=== PATIENT | male | born 1945 | race Caucasian/White ===

== ENCOUNTER 2022-03-28 22:03 | Inpatient (IN) | payer OTHER ==
[2022-03-28 22:47] LABS: #Monocytes 0.7 10x3/uL (0.0-1.1); #Neutrophils 8.7 10x3/uL (1.5-8.4); %Basophils 0.3 % (0.0-2.0); %Eosinophils 0.1 % (0.0-6.0); %Lymphocytes 5.6 % (18.0-47.0); %Monocytes 7.1 % (0.0-10.0); %Neutrophils 86.7 % (40.0-75.0); Hemoglobin 14.5 g/dL (13.5-17.5); Mean Corpuscular HGB CONC 36.5 g/dL (32.0-36.0); Mean Corpuscular Hemoglobin 30.9 pg (27.0-33.0); Mean Corpuscular Volume 84.5 fl (81.2-95.1); Mean Platelet Volume 10.3 fl (7.4-10.4); Platelet Count 165 10x3/uL (150-450); White Blood Cell (WBC) Count 10.1 10x3/uL (3.5-10.5)
[2022-03-28 23:01] LABS: ALT (SGPT) 245 U/L (8-55); AST (SGOT) 299 U/L (5-34); Albumin 4.1 g/dL (3.4-4.8); Alkaline Phosphatase 188 U/L (40-110); Anion Gap 14 mmol/L (10-20); BUN (Urea Nitrogen) 13 mg/dL (8.4-25.7); Bilirubin, Total 3.9 mg/dL (0.2-1.2); CK (CPK) 64 U/L (30-200); Calc. Creatinine Clearance 0 mL/min (70-130); Calcium 8.3 mg/dL (7.8-10.44); Carbon Dioxide 20 mmol/L (23-31); Chloride 110 mmol/L (98-107); Estimated GFR 91; Globulin 2.1 g/dL (2.4-3.5); Glucose 118 mg/dL (83-110); Lipase 12 U/L (8-78); Potassium 3.5 mmol/L (3.5-5.1); Protein, Total 6.2 g/dL (5.8-8.1); Sodium 140 mmol/L (136-145)
[2022-03-28 23:22] LABS: CKMB 1.2 ng/mL (0-6.6)
[2022-03-28] MEDS ORDERED: Aspirin Chewable 81 MG TAB ONE (23:41)
[2022-03-28] MEDS ORDERED: Ondansetron PF 4 MG/2 ML Vial ONE (23:43)
[2022-03-29 00:25] LABS: SARS-CoV-2 NAA Rapid Test Not Detected (NotDetected)
[2022-03-29] MEDS ORDERED: Sucralfate 1 GM/10 ML UDCUP ONE (00:35)
[2022-03-29] MEDS ORDERED: Pantoprazole 40 MG VIAL ONE (00:52)
[2022-03-29 03:25] VITALS: BMI 25.4
[2022-03-29 03:40] LABS: HBSAg Index 0.17 S/CO (0-0.99); Hep B Surf Ag Non-Reactive S/CO (NonReactive)
[2022-03-29] MEDS ORDERED: Piperacillin/Tazobactam 3.375 GM in Sodium Chloride 0.9% 100 ML IVPB SCH (04:00)
[2022-03-29] MEDS: Potassium Chloride 20 MEQ in Lactated Ringer's 1,000 ML IV SCH ×3 (04:03→19:32)
[2022-03-29 04:40] LABS: Troponin I 0.112 ng/mL (< 0.028)
[2022-03-29 06:31] LABS: PTT 28.8 sec (22.0-33.0); Prothrombin Time 11.3 sec (9.5-12.1)
[2022-03-29 06:35] LABS: ALT (SGPT) 296 U/L (8-55); AST (SGOT) 256 U/L (5-34); Albumin 4.1 g/dL (3.4-4.8); Alkaline Phosphatase 210 U/L (40-110); Anion Gap 14 mmol/L (10-20); BUN (Urea Nitrogen) 14 mg/dL (8.4-25.7); Calc. Creatinine Clearance 81 mL/min (70-130); Calcium 8.6 mg/dL (7.8-10.44); Carbon Dioxide 21 mmol/L (23-31); Chloride 110 mmol/L (98-107); Estimated GFR 89; Globulin 2.1 g/dL (2.4-3.5); Glucose 110 mg/dL (83-110); Protein, Total 6.2 g/dL (5.8-8.1); Sodium 141 mmol/L (136-145)
[2022-03-29 06:41] LABS: Troponin I 0.107 ng/mL (< 0.028)
[2022-03-29] MEDS ORDERED: Levothyroxine Sodium 100 MCG TAB PO SCH ×2 (07:45→12:00)
[2022-03-29] MEDS ORDERED: Magnevist 469MG/ML 20 ML VIAL ONE (10:33)
[2022-03-29] MEDS: Aspirin 81 mg Enteric Coated Tablet PO SCH (13:55)
[2022-03-29] MEDS: Terazosin HCl 5 MG CAP PO SCH (13:55)
[2022-03-29] MEDS: Pantoprazole 40 MG VIAL IVP SCH ×2 (13:55→20:27)
[2022-03-29] MEDS: Piperacillin/Tazobactam 3.375 GM in Sodium Chloride 0.9% 100 ML IVPB SCH ×3 (13:56→23:40)
[2022-03-29] MEDS: Aspirin 300 MG Suppository PR SCH (13:58)
[2022-03-29 18:37] LABS: Iron 110 ug/dL (65-175); Iron Binding Capacity, Total 201 mcg/dL (261-462)
[2022-03-29] MEDS: Ondansetron PF 4 MG/2 ML Vial IVP PRN (20:27)
[2022-03-29 23:43] LABS: Hep A IgM AB Non-Reactive (NonReactive); Hep A IgM S/CO 0.13 S/CO (0-0.79)
[2022-03-29 23:54] LABS: HBSAB Concentration 33.56 mIU/mL; Hep B Surf AB Reactive (NonReactive)
[2022-03-30] MEDS ORDERED: Acetaminophen 325 MG TAB PO PRN (00:32)
[2022-03-30] MEDS ORDERED: VANCOMYCIN 1.75 GM/350 ML BAG IVPB SCH (01:15)
[2022-03-30] MEDS ORDERED: VANCOMYCIN 1.75 GM/350 ML BAG 1.75 GM in Premix Bag 1 BAG IVPB SCH (02:00)
[2022-03-30 03:57] LABS: #Eosinphils 0.3 10x3/uL (0.0-0.5); #Monocytes 0.7 10x3/uL (0.0-1.1); #Neutrophils 4.7 10x3/uL (1.5-8.4); %Basophils 0.6 % (0.0-2.0); %Eosinophils 3.3 % (0.0-6.0); %Lymphocytes 11.9 % (18.0-47.0); %Monocytes 10.2 % (0.0-10.0); %Neutrophils 73.1 % (40.0-75.0); Hemoglobin 13.4 g/dL (13.5-17.5); Mean Corpuscular HGB CONC 35.7 g/dL (32.0-36.0); Mean Corpuscular Hemoglobin 31.3 pg (27.0-33.0); Mean Corpuscular Volume 87.5 fl (81.2-95.1); Mean Platelet Volume 10.5 fl (7.4-10.4); Platelet Count 126 10x3/uL (150-450); RBC Distribution Width 12.4 % (11.5-14.5); Red Blood Cell (RBC) Count 4.32 10x6/uL (4.32-5.72); White Blood Cell (WBC) Count 6.4 10x3/uL (3.5-10.5)
[2022-03-30 04:01] LABS: INR-International Normal Ratio 1.1; Prothrombin Time 12.3 sec (9.5-12.1)
[2022-03-30 04:11] LABS: ALT (SGPT) 172 U/L (8-55); AST (SGOT) 97 U/L (5-34); Albumin 3.5 g/dL (3.4-4.8); Alkaline Phosphatase 183 U/L (40-110); Anion Gap 12 mmol/L (10-20); BUN (Urea Nitrogen) 15 mg/dL (8.4-25.7); Bilirubin, Total 8.7 mg/dL (0.2-1.2); Calc. Creatinine Clearance 83 mL/min (70-130); Calcium 8.3 mg/dL (7.8-10.44); Carbon Dioxide 21 mmol/L (23-31); Chloride 109 mmol/L (98-107); Estimated GFR 90; Globulin 2.4 g/dL (2.4-3.5); Glucose 89 mg/dL (83-110); Potassium 3.6 mmol/L (3.5-5.1); Protein, Total 5.9 g/dL (5.8-8.1); Sodium 138 mmol/L (136-145)
[2022-03-30] MEDS: Potassium Chloride 20 MEQ in Lactated Ringer's 1,000 ML IV SCH ×2 (04:59→12:00)
[2022-03-30] MEDS ORDERED: Levothyroxine Sodium 100 MCG TAB PO SCH (06:00)
[2022-03-30] MEDS ORDERED: PROPOFOL 20 ML ONE (09:14)
[2022-03-30] MEDS ORDERED: Lidocaine 1% PF 5 ML VIAL ONE (09:25)
[2022-03-30] MEDS: Piperacillin/Tazobactam 3.375 GM in Sodium Chloride 0.9% 100 ML IVPB SCH ×2 (11:52→16:00)
[2022-03-30] MEDS: Terazosin HCl 5 MG CAP PO SCH (11:54)
[2022-03-30] MEDS: Aspirin 81 mg Enteric Coated Tablet PO SCH (11:54)
[2022-03-30] MEDS: Pantoprazole 40 MG VIAL IVP SCH (11:54)
[2022-03-30] MEDS: Aspirin 300 MG Suppository PR SCH (12:12)
[2022-03-30] MEDS ORDERED: VANCOMYCIN 1.25 GM/250 ML BAG IVPB SCH (13:00)
[2022-03-30] MEDS: Ondansetron PF 4 MG/2 ML Vial IVP PRN (13:33)
[2022-03-30 17:39] VITALS: BP 136/67; TEMP 98.9
[2022-04-01 11:14] LABS: Smooth Muscle Total ABS 8 Units (0-19)
[2022-04-01 21:12] LABS: Hep C PCR-Quant HCV Not Detected IU/mL (.)
[2022-04-02 04:12] LABS: Alpha-1-Antitrypsin 174 mg/dL (101-187)
[2022-04-02 12:42] LABS: EliA Vaculitis New Method **** NEW METHOD ****; Mitochondrial Ab 0.7 U/mL (<4 Negative)
== END 2022-03-30 17:00 | disposition short-term general hospital (02) | DRG 445 ==
LOC: CSHERS 22:03 → CSHTELE 03-29 02:59 → EEVIPCON 03-29 02:59
PROVIDERS: ADMIT Family Medicine; ATTEND Internal Medicine
PROC: 0DJ08ZZ Inspection of Upper Intestinal Tract, Via Natural or Artificial Opening Endoscopic (ICD-10-PCS; principal; 2022-03-30)
DX: K83.1 Obstruction of bile duct (principal); K92.2 Gastrointestinal hemorrhage, unspecified; K44.9 Diaphragmatic hernia without obstruction or gangrene; K21.9 Gastro-esophageal reflux disease without esophagitis; I10 Essential (primary) hypertension; E03.9 Hypothyroidism, unspecified; Z20.822 Contact with and (suspected) exposure to COVID-19; N40.1 Benign prostatic hyperplasia with lower urinary tract symptoms; R39.11 Hesitancy of micturition; Z88.8 Allergy status to other drugs, medicaments and biological substances; Z98.890 Other specified postprocedural states; Z90.49 Acquired absence of other specified parts of digestive tract; Z87.891 Personal history of nicotine dependence
CPT/HCPCS: 36415; 71045; 74176; 74183; 80053; 82103; 82105; 82550; 82553; 83516; 83540; 83550; 83605; 83690; 83735; 84484; 85014; 85025; 85610; 85730; 86015; 86706; 86708; 86709; 86850; 86900; 86901; 87040; 87086; 87340; 87522; 93005; 93010; 93306; 96365; 96375; A9579; C9113; J2405; J2543; J2704; J3370; J3480; J3490; J7120; U0002